=== PATIENT | male | born 1975 | race Caucasian/White ===

== ENCOUNTER 2024-03-24 15:19 | Emergency (ER) | payer BC ==
[~2024-03-24] VITALS: Ht 182.9 cm; Wt 132.4 kg
[2024-03-24 15:43] VITALS: BP 126/77; PULSE 92; RESP 18; TEMP 97.8
[2024-03-24] MEDS ORDERED: FLUORESCEIN OPTH STRIP 1 MG ONE (18:48)
[2024-03-24] MEDS ORDERED: TETRACAINE HCL/PF 0.5% OPTH 4 ML BTL ONE (18:48)
[2024-03-24] MEDS ORDERED: MORPHINE SULFATE 4 MG/ML SYR ONE (18:48)
[2024-03-24] MEDS: MORPHINE SULFATE 4 MG/ML SYR IM ONE (18:55)
[2024-03-24] MEDS: FLUORESCEIN OPTH STRIP 1 MG OP ONE (18:55)
[2024-03-24 18:56] VITALS: BP 126/77; PULSE 92; RESP 18; TEMP 97.8
[2024-03-24] MEDS: TETRACAINE HCL/PF 0.5% OPTH 4 ML BTL OP ONE (18:56)
[2024-03-24] MEDS ORDERED: ACET-5636 PO (19:04)
== END 2024-03-24 19:14 | disposition home or self-care (01) ==
LOC: MED 15:19
DX: M25.461 Effusion, right knee (principal); M25.551 Pain in right hip; M79.671 Pain in right foot; M25.572 Pain in left ankle and joints of left foot; M25.571 Pain in right ankle and joints of right foot; Z79.899 Other long term (current) drug therapy
CPT/HCPCS: 72100; 73502; 73562; 73610; 73630; 96372; 99284; J2270